=== PATIENT | male | born 1940 | race Hispanic/Latino ===

== ENCOUNTER → 2023-04-17 | Outpatient (CLI) | payer OTHER | END | disposition home or self-care (01) | LOC: OIH 14:01 | PROVIDERS: ATTEND Internal Medicine Cardiovascular Disease | DX: Z13.6 Encounter for screening for cardiovascular disorders (principal) | CPT/HCPCS: 75571 ==

== ENCOUNTER 2023-06-06 07:21 | Day surgery (SDC) | payer OTHER ==
[2023-06-03 11:20] LABS: BASOPHILS # (AUTO) 0.02 K/uL (0.00-0.20); BASOPHILS % (AUTO) 0.3 % (0.0-5.0); EOSINOPHILS % (AUTO) 1.4 % (0.0-8.0); HEMATOCRIT 42.5 % (42-54); IMMATURE GRANULOCYTE ABSOLUTE 0.04 K/uL (0-1); LYMPHOCYTES # (AUTO) 1.8 K/uL (1.0-4.8); MEAN CORPUSCULAR HEMOGLOBIN 31.3 pg (27.0-33.0); MEAN CORPUSCULAR HGB CONC 34.4 g/dL (32.0-36.0); MEAN CORPUSCULAR VOLUME 91.2 fL (79-99); MONOCYTES # (AUTO) 0.5 K/uL (0.1-1.0); MONOCYTES % (AUTO) 7.7 % (3.0-13.0); NEUTROPHILS # (AUTO) 4.6 K/uL (1.8-7.7); PLATELET COUNT (AUTO) 195 K/uL (130-400); RED BLOOD CELL COUNT(AUTO) 4.66 MIL/uL (4.50-6.20); RED CELL DISTRIBUTION WIDTH 13.5 % (11.0-15.5)
[2023-06-03 11:26] LABS: CREATININE 1.2 mg/dL (0.5-1.5); POTASSIUM 4.6 mmol/L (3.5-5.1)
[2023-06-03 11:35] LABS: INR 0.97 (0.85-1.15); PROTHROMBIN TIME 11.3 SEC (9.6-11.6)
[2023-06-03 11:35] LABS: APPEARANCE,URINE CLEAR (CLEAR); BILIRUBIN,URINE NEGATIVE (NEGATIVE); COLOR,URINE LIGHT-YELLOW (YELLOW); GLUCOSE, URINE (UA) NEGATIVE (NEGATIVE); KETONES,URINE NEGATIVE (NEGATIVE); LEUKOCYTE ESTERASE ,URINE NEGATIVE Leu/uL (NEGATIVE); NITRATE,URINE NEGATIVE (NEGATIVE); PROTEIN,URINE NEGATIVE (NEGATIVE); UROBILINOGEN,URINE 0.2 mg/dL (0.2-1.0)
[2023-06-03 11:37] LABS: PARTIAL THROMBOPLASTIN TIME 29.5 SEC (26.3-35.5)
[2023-06-03 11:45] VITALS: BP 151/75; PULSE 65; RESP 19
[2023-06-03 11:48] LABS: ADD UA MICROSCOPIC YES
[2023-06-03 11:56] LABS: MUCUS,URINE RARE LPF (None Seen); WBC,URINE 0-1 /HPF (0-1)
[~2023-06-06] VITALS: Ht 162.6 cm; Wt 81.6 kg
[2023-06-06] VITALS (10 sets, daily range): BP systolic 101–149; BP diastolic 41–67; PULSE 50–62; RESP 12–18
[~2023-06-06 07:21] MED LIST: AEC81 PO; CYPR4TAB46 PO; DICL100G61 TP; LISI40TA9 PO; MECL-302 PO; ROSU10TA28 PO; SERT-440 PO; TRAZ-185 PO
[2023-06-06] MEDS ORDERED: 0.9%NACL 1000ML 1,000 ML IV ONE (08:20)
[2023-06-06] MEDS ORDERED: TAMS-1 PO (09:09)
[2023-06-06] MEDS ORDERED: LIDOCAINE HCL 400MG/20ML VIAL ONE (11:21)
[2023-06-06] MEDS ORDERED: IOHEXOL 350 MG/ML 100ML INFUS..BTL IV ONE (11:21)
[2023-06-06] MEDS ORDERED: IOHEXOL-350 50ML VIAL IV ONE (11:21)
[2023-06-06] MEDS ORDERED: HEPARIN 10,000 UNIT/10ML (1,000 UNIT/ML) VIAL ONE (11:22)
[2023-06-06] MEDS ORDERED: MEPERIDINE-PF 25 MG/ML SYG ONE ×2 (11:52→12:16)
[2023-06-06] MEDS ORDERED: MIDAZOLAM HCL 1 MG/ML 2ML VIAL ONE ×2 (11:52→12:17)
[2023-06-06] MEDS ORDERED: DEXTROSE 50%-WATER 50 ML DISP.SYRIN IV PRN (13:00)
[2023-06-06] MEDS ORDERED: 0.9%NACL 1000ML 1,000 ML IV SCH (13:00)
[2023-06-06] MEDS ORDERED: GLUCAGON 1MG KIT 1 MG ML IM PRN (13:00)
[2023-06-06] MEDS ORDERED: INSULIN HUMULIN R 100 UNIT/ML 3ML SQ SCH (16:30)
== END 2023-06-06 17:40 | disposition home or self-care (01) ==
LOC: DAH 07:21
PROVIDERS: ATTEND Internal Medicine Cardiovascular Disease
DX: I25.118 Atherosclerotic heart disease of native coronary artery with other forms of angina pectoris (principal); I10 Essential (primary) hypertension; E78.5 Hyperlipidemia, unspecified; G47.30 Sleep apnea, unspecified; K21.9 Gastro-esophageal reflux disease without esophagitis; G47.00 Insomnia, unspecified; Z79.899 Other long term (current) drug therapy; Z98.890 Other specified postprocedural states; Z79.01 Long term (current) use of anticoagulants; Z87.891 Personal history of nicotine dependence; Z79.1 Long term (current) use of non-steroidal anti-inflammatories (NSAID)
CPT/HCPCS: 80048; 83880; 85025; 85610; 85730; 81001; 36415; 71045; 93005; 93458; A4223 ×3; Q9965; C1894; C1760; J3490; J7030; J2250 ×2; J2175 ×2; J1644; Q9967; A4215; A4222; A4221; A4663; A4216; A4606; 99156; 99157